=== PATIENT | male | born 1990 | race Caucasian/White ===

== ENCOUNTER 2023-11-03 13:00 | Emergency (ER) | payer MEDICAID ==
[2023-11-03 13:52] LABS: BASOPHILS ABSOLUTE AUTO 0.1 K/mm3 (0.0-0.2); BASOPHILS PERCENT AUTO 1.5 % (0.0-1.0); EOSINOPHILS ABSOLUTE AUTO 0.1 K/mm3 (0.0-0.4); EOSINOPHILS PERCENT AUTO 2.2 % (0.0-6.0); HEMATOCRIT 31.5 % (42.0-52.0); HEMOGLOBIN 10.4 gm/dl (14.0-18.0); IMMATURE GRAN ABSOLUTE AUTO 0.01 K/mm3 (0.00-0.05); IMMATURE GRAN PERCENT AUTO 0.2 % (0.0-0.4); LYMPHOCYTES ABSOLUTE AUTO 1.2 K/mm3 (1.0-4.8); LYMPHOCYTES PERCENT AUTO 26.3 % (24.0-44.0); MEAN CORPUSCULAR HEMOGLOBIN 30.7 pg (28.0-32.0); MEAN CORPUSCULAR VOLUME 92.9 fl (83.0-99.0); MEAN PLATELET VOLUME 10.7 fl (9.4-12.4); MONOCYTES ABSOLUTE AUTO 0.5 K/mm3 (0.0-0.8); MONOCYTES PERCENT AUTO 11.9 % (0.0-8.0); NEUTROPHILS ABSOLUTE AUTO 2.6 K/mm3 (1.8-7.7); NEUTROPHILS PERCENT AUTO 57.9 % (41.0-71.0); PLATELET COUNT,PLT 79 K/mm3 (150-400); RED BLOOD CELL COUNT 3.39 M/mm3 (4.52-5.90); WHITE BLOOD CELL COUNT,WBC 4.53 K/mm3 (3.9-11.3)
[2023-11-03 14:02] LABS: ALBUMIN 3.2 g/dl (3.4-5.0); BILIRUBIN TOTAL 3.1 mg/dL (0.2-1.0); BUN/CREATININE RATIO 7.7 (14-18); CALCIUM 9.1 mg/dL (8.5-10.1); CREATININE 1.3 mg/dL (0.7-1.3); EST CRCL DRUG DOSING (CG) 77.46 mL/min; MAGNESIUM 1.4 mg/dL (1.8-2.4); PROTEIN TOTAL,TP 6.5 g/dl (6.4-8.2)
[2023-11-03 14:18] LABS: APPEARANCE,URINE SLT CLOUDY (Clear); BILIRUBIN,URINE NEGATIVE (Negative); COLOR,URINE DARK YELLOW (Yellow); GLUCOSE,URINE NEGATIVE (Negative); KETONES,URINE TRACE (Negative); LEUKOCYTE ESTERASE,URINE NEGATIVE (Negative); NITRITE,URINE NEGATIVE (Negative); OCCULT BLOOD,URINE 2+ (Negative); PROTEIN,URINE NEGATIVE (Negative)
[2023-11-03 16:08] LABS: BACTERIA,URINE FEW /hpf (FEW); RBC,URINE 75-100 /hpf (0-5); SQUAMOUS EPITHELIAL CELLS,UR 0-5 /hpf (0-5); WBC,URINE 0-5 /hpf (0-5)
[2023-11-03 16:09] LABS: MUCUS,URINE FEW /hpf (FEW)
[2023-11-03] MEDS: Magnesium Oxide 400 MG Tab PO ONE (16:29)
== END 2023-11-03 17:09 | disposition home or self-care (01) ==
LOC: JD.ED 13:00
DX: K70.30 Alcoholic cirrhosis of liver without ascites (principal); F17.210 Nicotine dependence, cigarettes, uncomplicated; R42 Dizziness and giddiness
CPT/HCPCS: 36415; 80053; 81001; 82140; 83735; 85025; 93005; 93246; 99284; A9270; 93010

== ENCOUNTER 2023-11-09 18:11 | Emergency (ER) | payer MEDICAID ==
[2023-11-09 19:32] LABS: BASOPHILS ABSOLUTE AUTO 0.1 K/mm3 (0.0-0.2); BASOPHILS PERCENT AUTO 1.6 % (0.0-1.0); EOSINOPHILS ABSOLUTE AUTO 0.2 K/mm3 (0.0-0.4); EOSINOPHILS PERCENT AUTO 3.9 % (0.0-6.0); HEMOGLOBIN 10.8 gm/dl (14.0-18.0); LYMPHOCYTES ABSOLUTE AUTO 1.1 K/mm3 (1.0-4.8); LYMPHOCYTES PERCENT AUTO 29.4 % (24.0-44.0); MEAN CORPUSCULAR HEMOGLOBIN 31.1 pg (28.0-32.0); MEAN CORPUSCULAR HGB CONC 33.8 g/dl (32.0-36.0); MEAN CORPUSCULAR VOLUME 92.2 fl (83.0-99.0); MONOCYTES ABSOLUTE AUTO 0.6 K/mm3 (0.0-0.8); MONOCYTES PERCENT AUTO 14.7 % (0.0-8.0); NEUTROPHILS ABSOLUTE AUTO 1.9 K/mm3 (1.8-7.7); NEUTROPHILS PERCENT AUTO 50.4 % (41.0-71.0); PLATELET COUNT,PLT 77 K/mm3 (150-400); RED BLOOD CELL COUNT 3.47 M/mm3 (4.52-5.90); WHITE BLOOD CELL COUNT,WBC 3.81 K/mm3 (3.9-11.3)
[2023-11-09 19:45] LABS: SLIDE REVIEW ABNORMAL SMEAR
[2023-11-09 20:00] LABS: ALBUMIN 3.2 g/dl (3.4-5.0); BILIRUBIN TOTAL 2.4 mg/dL (0.2-1.0); BUN/CREATININE RATIO 8.2 (14-18); CALCIUM 9.2 mg/dL (8.5-10.1); CREATININE 1.1 mg/dL (0.7-1.3); EST CRCL DRUG DOSING (CG) 91.55 mL/min; MAGNESIUM 1.3 mg/dL (1.8-2.4); PROTEIN TOTAL,TP 6.5 g/dl (6.4-8.2)
[2023-11-09] MEDS ORDERED: Magnesium Sulfate (4.06 MEQ/ML) 5 GM/10 ML SDV IV ONE (20:35)
[2023-11-09 20:50] LABS: APPEARANCE,URINE CLEAR (Clear); BILIRUBIN,URINE NEGATIVE (Negative); COLOR,URINE YELLOW (Yellow); GLUCOSE,URINE NEGATIVE (Negative); KETONES,URINE NEGATIVE (Negative); LEUKOCYTE ESTERASE,URINE NEGATIVE (Negative); NITRITE,URINE NEGATIVE (Negative); OCCULT BLOOD,URINE 1+ (Negative); PROTEIN,URINE NEGATIVE (Negative); UROBILINOGEN,URINE 0.2 (0.2-1.0)
[2023-11-09 20:56] LABS: INR 1.39; PROTHROMBIN TIME 14.5 SECONDS (9.7-12.0)
[2023-11-09 20:56] LABS: BACTERIA,URINE FEW /hpf (FEW); EPITHELIAL CELLS,URINE 0-5 /hpf (0-5); MUCUS,URINE MODERATE /hpf (FEW); WBC,URINE 0-5 /hpf (0-5)
[2023-11-09] MEDS: Sodium Chloride 0.9% 1,000 ML IV ONE (21:06)
[2023-11-09] MEDS: Iopamidol 612 MG/ML 100 ML Bottle IVPUSH ONE (22:13)
== END 2023-11-10 00:18 | disposition home or self-care (01) ==
LOC: JD.ED 18:11
DX: R42 Dizziness and giddiness (principal); E83.42 Hypomagnesemia; R31.0 Gross hematuria; Z79.899 Other long term (current) drug therapy
CPT/HCPCS: 36415; 71045; 71045-26; 74177; 74177-26; 80053; 81001; 82140; 83735; 84443; 85025; 85610; 93005; 96361; 96374; 99284-25; J3475; J7030; Q9967